=== PATIENT | male | born 1930 | race Caucasian/White ===

== ENCOUNTER 2016-10-05 18:45 | Inpatient (IN) | payer MEDICARE, MEDICAID ==
[~2016-10-05] VITALS: Ht 203.2 cm; Wt 56.2 kg
[~2016-10-05 18:45] MED LIST: AMIN30LI25 PO; CARV3.12 PO; DEXT1CAP3 PO; DIVA250T6 PO; HYOS0.1285 SL; IPRA0.2S9 IH; LORA2ORA SL; MAG30ORA PO; MAGN400O6 PO; MORP100S3 PO; MORP100S3 SL; ONDA-25 PO; TRAM50TA2 PO; TYL2T PO
[2016-10-05] MEDS ORDERED: VANCOMYCIN 1 GM in IV D5W 250 ML IV ONE (19:00)
[2016-10-05] MEDS ORDERED: CEFEPIME 1 GM in IV D5W 50 ML IV ONE (19:00)
[2016-10-05] MEDS ORDERED: IV NS 0.9% 1,000 ML BAG IV ONE (19:00)
[2016-10-05] MEDS ORDERED: CEFEPIME 1 GM VIAL ONE (19:03)
[2016-10-05] MEDS ORDERED: IV SET PRIMARY 1 EA INFUS.SET MC ONE (19:03)
[2016-10-05 19:04] LABS: BASOPHILS # (AUTO) 0.2 /CMM (0.0-0.2); BASOPHILS % (AUTO) 2.7 % (0.0-2.0); EOSINOPHILS # (AUTO) 0.1 /CMM (0.0-0.7); EOSINOPHILS % (AUTO) 0.8 % (0.0-6.0); HEMATOCRIT 39 % (39-51); HEMOGLOBIN 13.1 g/dL (13.5-17.5); LYMPHOCYTES # (AUTO) 1.6 /CMM (0.8-4.8); LYMPHOCYTES % (AUTO) 22.2 % (20.0-44.0); MEAN CORPUSCULAR HEMOGLOBIN 32 PG (26.0-33.0); MEAN CORPUSCULAR HGB CONC 33 g/dl (31.0-36.0); MEAN CORPUSCULAR VOLUME 95 fL (80-96); MONOCYTES # (AUTO) 1.1 /CMM (0.1-1.30); MONOCYTES % (AUTO) 15.1 % (2.0-12.0); NEUTROPHILS # (AUTO) 4.4 /CMM (1.8-8.9); NEUTROPHILS % (AUTO) 59.2 % (43.0-81.0); PLATELET COUNT (AUTO) 105 /CMM (150-450); RDW COEFFICIENT OF VARIATION 16.4 (11.5-15.0); RED BLOOD CELL COUNT(AUTO) 4.13 MIL/uL (4.5-6.0); WHITE BLOOD COUNT (AUTO) 7.4 K/uL (4.3-11.0)
[2016-10-05] MEDS ORDERED: VANCOMYCIN 1 GM VIAL ONE (19:04)
[2016-10-05] MEDS ORDERED: IV SET PRIMARY PUMP SET 1 EA INFUS.SET MC ONE ×2 (19:04→23:01)
[2016-10-05] MEDS ORDERED: IV NS 0.9% 1,000 ML ONE ×2 (19:04→19:21)
[2016-10-05] MEDS ORDERED: IV D5W 50 ML IV ONE (19:04)
[2016-10-05] MEDS ORDERED: CEFT1VIA15 IM (19:05)
[2016-10-05] MEDS ORDERED: CYPR4TAB34 PO (19:05)
[2016-10-05] MEDS ORDERED: LEVO750T21 PO (19:05)
[2016-10-05] MEDS ORDERED: DONE5TAB3 PO (19:05)
[2016-10-05] MEDS ORDERED: SACC250C6 PO (19:05)
[2016-10-05] MEDS ORDERED: MELA3TAB PO (19:05)
[2016-10-05] MEDS ORDERED: DEXT15DR6 EACHEYE (19:05)
[2016-10-05] MEDS ORDERED: CALC1TAB30 PO (19:05)
[2016-10-05] MEDS ORDERED: MULT-659 PO (19:05)
--- NOTE | 2016-10-05 19:05 | NUR ---
TO BED 6 A 86 YO MALE BIBRA FROM [facility] WITH C/O FAILURE TO THRIVE; COUGH; PNEUMONIA. UPON ARRIVAL TO ER, PATIENT IS RESPONSIVE TO VERBAL AND TACTILE STIMULI. BREATHING EVEN AND UNLABORED. NOTED WITH CRACKLES TANIA LUNGS, AND COUGHING, UNABLE TO COUGH UP SPUTUM. O2 SATURATION ON ROOM AIR IS 95%. KEPT HOB ELEVATED. CARDIAC MONITORING ON. INITIATED COMFORT AND SAFETY MEASURES. AWAITING FOR ER MD KHAN.
--- NOTE | 2016-10-05 19:10 | NUR ---
STRAIGHT IN AN OUT CATH ASEPTICALLY PERFORMED, COLLECTED URINE SAMPLE AND CALLED LAB FOR PROFESSOR OF RELIGIOUS STUDIES.
[2016-10-05] MEDS ORDERED: RISP0.253 PO (19:11)
[2016-10-05] MEDS ORDERED: ASCO500T8 PO (19:11)
[2016-10-05] MEDS ORDERED: MIRT15TA7 PO (19:11)
[2016-10-05] MEDS ORDERED: MEMA5TAB PO (19:11)
[2016-10-05 19:14] LABS: CALCIUM, SERUM 8.9 mg/dL (8.5-10.1); CARBON DIOXIDE 35 mmol/L (21-32); CHLORIDE 113 mmol/L (98-107); GLUCOSE 124 mg/dL (74-106); POTASSIUM 3.8 mmol/L (3.5-5.1); SODIUM SERUM 152 mmol/L (136-145); UREA NITROGEN, BLOOD 39 mg/dL (7-18)
[2016-10-05 19:17] LABS: INR 3.69 (0.87-1.13); PROTHROMBIN TIME 41.1 SECS (9.5-12.7)
[2016-10-05 19:19] LABS: ALANINE AMINOTRANSFERASE 13 U/L (12-78); ALKALINE PHOSPHATASE 128 U/L (46-116); ASPARTATE AMINOTRANSFERASE 32 U/L (15-37); BILIRUBIN,DIRECT 0.2 mg/dL (0.0-0.2); BILIRUBIN,TOTAL 0.5 mg/dL (0.2-1.0); TOTAL PROTEIN, SERUM 6.7 g/dL (6.4-8.2)
[2016-10-05 19:22] LABS: TROPONIN I < 0.017 ng/mL (0.00-0.056)
[2016-10-05] MEDS ORDERED: LIDOCAINE 2% JEL UROJET 10 ML MM ONE (19:33)
[2016-10-05 20:06] LABS: APPEARANCE,URINE Clear (CLEAR); BILIRUBIN,URINE SMALL (NEGATIVE); BLOOD, URINE Negative Ery/uL (NEGATIVE); COLOR,URINE Yellow (YELLOW); KETONES,URINE 15 (NEGATIVE); LEUKOCYTE ESTERASE ,URINE Negative (NEGATIVE); NITRITE, URINE Negative (NEGATIVE); PROTEIN,URINE 30 mg/dl (NEGATIVE); UGLUCOSE Negative (NEGATIVE)
--- NOTE | 2016-10-05 20:18 | NUR ---
SUSSY PAGED, SOLAR SALES ASSESSOR
[2016-10-05 20:19] LABS: BAND % (MANUAL) 16 % (0.0-5.0); LYMPHOCYTES % (MANUAL) 30 % (16-48); MONOCYTES % (MANUAL) 12 % (0-11.0); NEUTROPHILS % (MANUAL) 42 (42-76)
--- NOTE | 2016-10-05 20:20 | NUR ---
CALLED NURSING SUP. FOR TELE BED
[2016-10-05 20:46] LABS: RBC,URINE 0-2 /HPF (0-2); WBC,URINE 0-2 /HPF (0-3)
[2016-10-05 20:47] LABS: BACTERIA,URINE Few /HPF (None Seen); SQUAMOUS EPITHELIAL CELL,UR Few /HPF (None Seen)
--- NOTE | 2016-10-05 20:59 | NUR ---
REPORT GIVEN TO SHEMAR MYERS FOR MO.
[2016-10-05 21:20] VITALS: BP 134/81
--- NOTE | 2016-10-05 21:20 | NUR ---
NETWORK SYSTEMS ENGINEER NOTES RECEIVED 86 YEAR OLD MALE PT FROM ER, AWAKE A/OX1 WITH CONFUSION VERBALIZES WITH SLUR SPEECH, HEAD TO TOE ASSESSMENT DONE WITH WITH PACE MAKER LCW SR 60'S ON NC NO SIGN OF SOB APPEARS WEAK WITH WOUND ON LT SACRAL AREA ND RIGHT LEG PICTURES TAKEN REFER TO CHART , SEEN BY MD BARRIOS WELL PHOTOS WITH WOUND CONSULT ORDERED, KEPT CLEAN AND DRY WELL REPOSITIONED.
--- NOTE | 2016-10-05 21:23 | NUR ---
TRANSPORTED PATIENT TO TELE BED 118-2 VIA ALS PROTOCOL, NO INCIDENT NOTED. MAINTAINED ON O2 INH AT 2LPM VIA NC. ENDORSED TO RN AT BEDSIDE.
[2016-10-05] MEDS ORDERED: IPRATROPIUM NEB FS 0.5 MG/2.5 ML AMPUL.NEB IH PRN (22:30)
[2016-10-05] MEDS ORDERED: Z GUARD REMEDY 2 OZ OINT TP PRN (22:30)
[2016-10-05] MEDS ORDERED: ACETAMINOPHEN 325 MG TABLET PO PRN (22:30)
[2016-10-05] MEDS ORDERED: MAGNESIUM HYDROXIDE 30 ML UDC PO PRN (22:30)
[2016-10-05] MEDS ORDERED: ALBUTEROL FS 2.5 MG/3 ML VIAL.NEB NEB PRN (22:30)
[2016-10-05] MEDS ORDERED: LEVOFLOXACIN 500 MG /D5W 100ML 500 MG in PREMIX 1 EA IV SCH (22:30)
[2016-10-05] MEDS ORDERED: MAG HYDROX/AL HYDROX/SIMETH 30 ML UDC PO PRN (22:30)
[2016-10-05] MEDS ORDERED: MORPHINE SULFATE INJ 2 MG/ML DISP.SYRIN IV PRN (22:30)
[2016-10-05] MEDS ORDERED: TRAMADOL HCL 50 MG TABLET PO PRN (22:30)
[2016-10-05] MEDS ORDERED: LEVOFLOXACIN 500 MG /D5W 100ML 100 ML IV ONE (22:52)
[2016-10-05] MEDS ORDERED: IV PREMIX 0.45% NS + KCL 1,000 ML IV ONE (22:55)
[2016-10-05] MEDS ORDERED: SECONDARY IV SET 1 EA INFUS.SET MC ONE (23:01)
--- NOTE | 2016-10-05 23:12 | NUR ---
MED NOTE: ALL ONCE STK MEDS REMOVED FROM PT EMAR. ALL MED ADMINISTERED UNDER UNVERIFIED DOSE.
[2016-10-06 04:00] VITALS: BP 104/59
[2016-10-06 07:17] LABS: VALPROIC ACID 32 ug/mL (50-100)
--- NOTE | 2016-10-06 07:18 | NUR ---
RN INITIAL NOTES: Rec'd pt asleep on bed, responded by calling his name, not in any form of distress. Pt on O2 at 2lpm/NC, saturating at 96%. 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 Has [address]FA [address], patent & intact w/ KCL 20 meqs + 0.45% NS 1L infusing well. Provided comfort & safety measures. Call light placed w/in reach. Bed kept low & in locked pos. Will continue to monitor.
[2016-10-06 07:22] LABS: BASOPHILS % (AUTO) 0.2 % (0.0-2.0); EOSINOPHILS # (AUTO) 0.1 /CMM (0.0-0.7); HEMATOCRIT 37 % (39-51); HEMOGLOBIN 12.3 g/dL (13.5-17.5); LYMPHOCYTES # (AUTO) 2.2 /CMM (0.8-4.8); LYMPHOCYTES % (AUTO) 19.4 % (20.0-44.0); MEAN CORPUSCULAR HEMOGLOBIN 32 PG (26.0-33.0); MEAN CORPUSCULAR HGB CONC 33 g/dl (31.0-36.0); MEAN CORPUSCULAR VOLUME 97 fL (80-96); MONOCYTES # (AUTO) 1.3 /CMM (0.1-1.30); MONOCYTES % (AUTO) 11.6 % (2.0-12.0); NEUTROPHILS # (AUTO) 7.7 /CMM (1.8-8.9); NEUTROPHILS % (AUTO) 67.8 % (43.0-81.0); PLATELET COUNT (AUTO) 94 /CMM (150-450); RDW COEFFICIENT OF VARIATION 17.5 (11.5-15.0); RED BLOOD CELL COUNT(AUTO) 3.85 MIL/uL (4.5-6.0); WHITE BLOOD COUNT (AUTO) 11.3 K/uL (4.3-11.0)
[2016-10-06 07:34] LABS: ALANINE AMINOTRANSFERASE 15 U/L (12-78); ALBUMIN 1.6 g/dL (3.4-5.0); ALKALINE PHOSPHATASE 107 U/L (46-116); ASPARTATE AMINOTRANSFERASE 27 U/L (15-37); B-TYPE NATRIURETIC PEPTIDE 1704 PG/ML (0-125); BILIRUBIN,TOTAL 0.5 mg/dL (0.2-1.0); CALCIUM, SERUM 8.2 mg/dL (8.5-10.1); CARBON DIOXIDE 30 mmol/L (21-32); CHLORIDE 115 mmol/L (98-107); CHOLESTEROL 131 mg/dL (<200); CREATININE 0.7 mg/dL (0.6-1.3); GLUCOSE 94 mg/dL (74-106); HDL CHOLESTEROL 16 mg/dL (40-60); LDL 85 mg/dL (0-99); MAGNESIUM 1.8 mg/dL (1.8-2.4); PHOSPHORUS 2.8 mg/dL (2.5-4.9); POTASSIUM 3.7 mmol/L (3.5-5.1); SODIUM SERUM 150 mmol/L (136-145); THYROID STIMULATING HORMONE 3.353 uIU/mL (0.358-3.74); TOTAL PROTEIN, SERUM 5.8 g/dL (6.4-8.2); TRIGLYCERIDES 116 mg/dL (30-150); UREA NITROGEN, BLOOD 31 mg/dL (7-18)
--- NOTE | 2016-10-06 08:23 | NUR ---
pt. noticed on monitor heart beat on 40,checked pt. agonal breathing,very pale,code status DNR,notifed Dr. Colin and try to reach unaable to connect,spoke with son via phone DONTA MIRANDA made aware of situation.
--- NOTE | 2016-10-06 08:25 | NUR ---
pt. went asystole,no breathing, no vital signs,pronounced with another RN MAGGIE.DR. HANSON notified. legacy notified pooja tayla released body because of age # [id number].notified family .
[2016-10-06] MEDS ORDERED: PANTOPRAZOLE 40 MG TABLET.DR PO SCH (08:44)
--- NOTE | 2016-10-06 08:54 | NUR ---
son at bedside emotional support given.
[2016-10-06] MEDS ORDERED: ASCORBIC ACID 500 MG TABLET PO SCH (09:00)
[2016-10-06] MEDS ORDERED: CALCIUM CARB 250MG /VITAMIN D 1 UDTAB PO SCH (09:00)
[2016-10-06] MEDS ORDERED: DOCUSATE SODIUM 100 MG CAPSULE PO SCH (09:00)
[2016-10-06] MEDS ORDERED: MULTIVIT, IRON, MIN NO. 8, FA 1 TAB TABLET PO SCH (09:00)
[2016-10-06] MEDS ORDERED: DIVALPROEX SODIUM 250 MG TABLET.DR PO SCH (09:00)
[2016-10-06] MEDS ORDERED: CYPROHEPTADINE HCL 4 MG TABLET PO SCH (09:00)
[2016-10-06] MEDS ORDERED: MEMANTINE HCL 5 MG TABLET PO SCH (09:00)
[2016-10-06] MEDS ORDERED: Medication Not On Formulary EA (Saccharomyces Boulardii (Florastor) 250 MG) PO SCH (09:00)
[2016-10-06] MEDS ORDERED: risperiDONE 0.25 MG TABLET PO SCH (09:00)
[2016-10-06] MEDS ORDERED: POLYVINYL ALCOHOL 15 ML BOTTLE EACHEYE SCH (09:00)
[2016-10-06] MEDS ORDERED: PROSOURCE / PROSTAT (PYXIS) 30 ML UDC PO SCH (09:00)
[2016-10-06 10:02] LABS: BAND % (MANUAL) 5 % (0.0-5.0); EOSINOPHILS % (MANUAL) 1 % (0-4); LYMPHOCYTES % (MANUAL) 13 % (16-48); MONOCYTES % (MANUAL) 8 % (0-11.0); NEUTROPHILS % (MANUAL) 73 (42-76)
--- NOTE | 2016-10-06 11:00 | NUR ---
RN NOTES: Post mortem care provided to the pt. Family at bedside. Ethel Society c/o Marcia informed that pt will be send to [facility].
--- NOTE | 2016-10-06 11:22 | NUR ---
RN NOTES: Pt was picked up by Ethel Society c/o Franck Hinton. Releasing of remains was witnessed by 2 RN's. Pt has no belongings at bedside. Family is aware. Pt left the facility via gurney accompanied by social security specialist.
[2016-10-06] MEDS ORDERED: MIRTAZAPINE 15 MG TABLET PO SCH (22:00)
[2016-10-06] MEDS ORDERED: TRAMADOL HCL 50 MG TABLET PO SCH (22:00)
[2016-10-06] MEDS ORDERED: DONEPEZIL 5 MG TABLET PO SCH (22:00)
== END 2016-10-06 09:23 | disposition expired | DRG 871 ==
LOC: ER 18:48 → TELE1 20:34
DX: A41.9 Sepsis, unspecified organism (principal); E43 Unspecified severe protein-calorie malnutrition; J69.0 Pneumonitis due to inhalation of food and vomit; J96.01 Acute respiratory failure with hypoxia; N17.0 Acute kidney failure with tubular necrosis; G93.40 Encephalopathy, unspecified; D68.59 Other primary thrombophilia; E87.0 Hyperosmolality and hypernatremia; J44.0 Chronic obstructive pulmonary disease with (acute) lower respiratory infection; J98.11 Atelectasis; G30.9 Alzheimer's disease, unspecified; F02.80 Dementia in other diseases classified elsewhere, unspecified severity, without behavioral disturbance, psychotic disturbance, mood disturbance, and anxiety; M19.90 Unspecified osteoarthritis, unspecified site; Z66 Do not resuscitate; Z95.0 Presence of cardiac pacemaker; I48.91 Unspecified atrial fibrillation; I25.10 Atherosclerotic heart disease of native coronary artery without angina pectoris; I50.9 Heart failure, unspecified; I11.0 Hypertensive heart disease with heart failure; G20 Parkinson's disease; L89.90 Pressure ulcer of unspecified site, unspecified stage; R65.20 Severe sepsis without septic shock
CPT/HCPCS: 36415; 71010-TC; 80048-TC; 80053-TC; 80061-TC; 80076-TC; 80164-TC; 81000-TC; 82962-TC; 83605-TC; 83735-TC; 83880; 84100-TC; 84443-TC; 84484-TC; 85025-TC; 85730-TC; 87040-TC; 87081-TC; 87086-TC; A4216; A4606; J0692; J1956; J3370; J3480; J3490; J7030; J7060; Z7610